=== PATIENT | female | born 1945 | race Caucasian/White ===

== ENCOUNTER 2020-02-26 08:01 | Day surgery (SDC) | payer MEDICARE, BC ==
--- NOTE | 2020-02-26 08:24 | PCM.PREANE ---
Preanesthetic Assessment - Anesthesia/Transfusion/Family Hx Anesthesia History: Prior Anesthesia Without Reaction - Review of Systems General: No Symptoms Pulmonary: No Symptoms Cardiovascular: No Symptoms Gastrointestinal: No Symptoms Neurological: No Symptoms Other: Reports: Diabetes - Physical Assessment NPO Status Date: 02/25/20 NPO Status Time: 18:00 Vital Signs: 121/61, 61, 16, 96% 98.5F Height: 1.75 m Weight: 72.575 kg ASA Class: 2 Mental Status: Alert & Oriented x3 Dentition: Reports: Partial (upper) Thyro-Mental Finger Breadths: 3 Mouth Opening Finger Breadths: 3 ROM/Head Extension: Full Lungs: Clear to Auscultation, Normal Respiratory Effort Cardiovascular: Regular Rate, Regular Rhythm - Allergies Allergies/Adverse Reactions: Allergies Allergy/AdvReac Type Severity Reaction Status Date / Time No Known Allergies Allergy Verified 02/25/20 13:44 - Acknowledgements Anesthesia Type Planned: MAC Pt an Appropriate Candidate for the Planned Anesthesia: Yes Alternatives and Risks of Anesthesia Discussed w Pt/Guardian: Yes Pt/Guardian Understands and Agrees with Anesthesia Plan: Yes PreAnesthesia Questionnaire Cardiovascular History: Reports: High Cholesterol Endocrine/Metabolic History: Reports: Diabetes, Type II, Hypothyroidism Oncologic (Cancer) History: Reports: Lung (Lt lower lobe removed) - Past Surgical History HEENT Surgical History: Reports: Tonsillectomy Respiratory Surgical History: Reports: Lung Resection - HOME MEDS Home Medications: Home Meds Alpha Lipoic Acid 50 mg PO DAILY 02/25/20 [History] Ascorbic Acid [Vitamin C] 1,000 mg PO DAILY 02/25/20 [History] Aspirin 81 mg PO DAILY 02/25/20 [History] Avocado Oil 1 dose PO DAILY 02/25/20 [History] Beta-Carotene [Beta Carotene] 10,000 unit PO DAILY 02/25/20 [History] Calcium Carbonate [Calcium] 600 mg PO DAILY 02/25/20 [History] Cholecalciferol (Vitamin D3) [Vitamin D3] 1,000 unit PO DAILY 02/25/20 [History] Cyanocobalamin (Vitamin B-12) [Vitamin B-12] 500 mcg PO DAILY 02/25/20 [History] Fish Oil/[place]-3 Fatty Acids [Fish Oil 1,000 MG] 1 gm PO DAILY 02/25/20 [Hi story] Glucosam/Chond/Collagen/Hyalur [Glucosamine Chondroitin] 1 cap PO DAILY 02/25/20 [History] Grape Seed Extract 50 mg PO DAILY 02/25/20 [History] Green Tea [place] Extract [Green Tea] 1 cap PO DAILY 02/25/20 [History] Lactobacillus Acidophilus [Probiotic] 1 cap PO DAILY 02/25/20 [History] Levothyroxine [Synthroid] 100 mcg PO DAILY 02/25/20 [History] Multivitamin 1 tab PO DAILY 02/25/20 [History] Pomegranate Fruit Extract [Pomegranate] 250 mg PO DAILY 02/25/20 [History] Resveratrol 100 mg PO DAILY 02/25/20 [History] Sour [place] Extract [Tart [place] Extract] 1,000 mg PO DAILY 02/25/20 [History] Turmeric/Turmeric Root Extract [Turmeric 450-50 mg Capsule] 1 cap PO DAILY 02/25/20 [History] Ubidecarenone [Coq-10] 100 mg PO DAILY 02/25/20 [History] Vitamin E 100 unit PO DAILY 02/25/20 [History] metFORMIN [Glucophage] 500 mg PO DAILY 02/25/20 [History] - CURRENT (IN HOUSE) MEDS Current Meds: Current Medications Brimonidine Tartrate (Alphagan 0.2% Ophth Soln) 0 ml EYERT ASDIRECTED LORRIE Stop: 02/26/20 18:00 Cefuroxime Sodium (Zinacef) 0 mg EYERT ASDIRECTED LORRIE Stop: 02/26/20 18:00 Lidocaine HCl (Xylocaine-Mpf 1%) 0 ml INJECT ASDIRECTED LORRIE Stop: 02/26/20 18:00 Phenylephrine HCl (Hubert-Synephrine 2.5% Ophth Soln) 0 ml EYERT ASDIRECTED LORRIE Stop: 02/26/20 18:00 Pilocarpine HCl (Pilocar 4% Ophth Soln) 0 ml EYERT ASDIRECTED LORRIE Stop: 02/26/20 18:00 Polymyxin/Trimethoprim Sulfate (Polytrim Ophth Soln) 0 ml EYERT ASDIRECTED LORRIE Stop: 02/26/20 18:00 Tetracaine HCl (Tetracaine 0.5% Steri-Unit Deisy) 0 ml EYEBOTH ASDIRECTED LORRIE Stop: 02/26/20 18:00 Tropicamide (Mydriacyl 1% Ophth Soln) 0 ml EYERT ASDIRECTED LORRIE Stop: 02/26/20 18:00
[2020-02-26] MEDS: Polymyxin B/Trimethoprim 10 ML Bottle EYERT SCH ×4 (08:34→11:56)
[2020-02-26] MEDS: Brimonidine 0.2% Ophth Soln 5 ML Bottle EYERT SCH ×4 (08:42→11:56)
[2020-02-26] MEDS: Phenylephrine 2.5% Ophth Soln 15 ML Bot EYERT SCH ×6 (08:47→10:28)
[2020-02-26] MEDS: Tropicamide 1% Ophth Soln 15 ML Bottle EYERT SCH ×4 (08:53→10:00)
[2020-02-26] MEDS: Lidocaine 1% PF 2 ML SDV INJECT SCH ×2 (10:16→10:39)
[2020-02-26] MEDS: Tetracaine HCl/PF 0.5% 4 ML Bottle EYEBOTH SCH ×3 (10:20→11:55)
[2020-02-26] MEDS: Cefuroxime 10 MG/ML SYRINGE EYERT SCH ×2 (10:49→11:55)
[2020-02-26] MEDS: Pilocarpine 4% Ophth Soln 15 ML Bot EYERT SCH ×2 (10:52→11:56)
--- NOTE | 2020-02-26 10:52 | PCM48HPAN ---
Post Anesthesia Note - EVALUATION WITHIN 48HRS OF ANESTHETIC Vital Signs in Normal Range: Yes Patient Participated in Evaluation: Yes Respiratory Function Stable: Yes Airway Patent: Yes Cardiovascular Function Stable: Yes Hydration Status Stable: Yes Pain Control Satisfactory: Yes Nausea and Vomiting Control Satisfactory: Yes Mental Status Recovered: Yes Vital Signs: Last Vital Signs Temp 36.9 C 02/26/20 08:00 Pulse 61 02/26/20 08:00 Resp 16 02/26/20 08:00 BP 121/61 02/26/20 08:00 Pulse Ox 96 02/26/20 08:00
== END 2020-02-26 11:00 | disposition home or self-care (01) ==
LOC: JD.SDS 08:01
PROVIDERS: ATTEND Ophthalmology
DX: E11.36 Type 2 diabetes mellitus with diabetic cataract (principal); E78.00 Pure hypercholesterolemia, unspecified; H25.813 Combined forms of age-related cataract, bilateral; H16.103 Unspecified superficial keratitis, bilateral; H16.223 Keratoconjunctivitis sicca, not specified as Sjogren's, bilateral; E07.9 Disorder of thyroid, unspecified; Z87.891 Personal history of nicotine dependence; Z79.82 Long term (current) use of aspirin; Z79.899 Other long term (current) drug therapy; Z79.84 Long term (current) use of oral hypoglycemic drugs
CPT/HCPCS: 66984; C1780; J0697; J2001

== ENCOUNTER 2020-03-25 06:44 | Day surgery (SDC) | payer MEDICARE, BC ==
[~2020-03-25 06:44] MED LIST: Cefuroxime 10 MG/ML SYRINGE EYELF SCH; Lidocaine 1% PF 2 ML SDV INJECT SCH
[2020-03-25] MEDS: Polymyxin B/Trimethoprim 10 ML Bottle EYELF SCH ×3 (07:10→08:39)
[2020-03-25] MEDS: Brimonidine 0.2% Ophth Soln 5 ML Bottle EYELF SCH ×3 (07:16→08:39)
--- NOTE | 2020-03-25 07:18 | PCM.PREANE ---
Preanesthetic Assessment - Anesthesia/Transfusion/Family Hx Anesthesia History: Prior Anesthesia Without Reaction Family History of Anesthesia Reaction: No Transfusion History: No Prior Transfusion(s) Intubation History: Unknown - Review of Systems General: No Symptoms Pulmonary: No Symptoms Cardiovascular: No Symptoms Gastrointestinal: No Symptoms Neurological: No Symptoms Other: Reports: None - Physical Assessment NPO Status Date: 03/24/20 NPO Status Time: 19:00 Vital Signs: Last Vital Signs Temp 37.0 C 03/25/20 06:53 Pulse 77 03/25/20 06:53 Resp 16 03/25/20 06:53 BP 139/63 03/25/20 06:53 Pulse Ox 94 L 03/25/20 06:53 ASA Class: 2 Mental Status: Alert & Oriented x3 Airway Class: Mallampati = 1 Dentition: Reports: Partial (upper/lower) Thyro-Mental Finger Breadths: 3 Mouth Opening Finger Breadths: 3 ROM/Head Extension: Full Lungs: Clear to Auscultation, Normal Respiratory Effort Cardiovascular: Regular Rate, Regular Rhythm - Allergies Allergies/Adverse Reactions: Allergies Allergy/AdvReac Type Severity Reaction Status Date / Time No Known Allergies Allergy Verified 02/25/20 13:44 - Acknowledgements Anesthesia Type Planned: MAC Pt an Appropriate Candidate for the Planned Anesthesia: Yes Alternatives and Risks of Anesthesia Discussed w Pt/Guardian: Yes Pt/Guardian Understands and Agrees with Anesthesia Plan: Yes PreAnesthesia Questionnaire HEENT History: Reports: Cataract Cardiovascular History: Reports: High Cholesterol Respiratory History: Reports: None Gastrointestinal History: Reports: None Genitourinary History: Reports: None Musculoskeletal History: Reports: None Neurological History: Reports: None Psychiatric History: Reports: None Endocrine/Metabolic History: Reports: Diabetes, Type II (Checks BS 1x/week), Hypothyroidism Oncologic (Cancer) History: Reports: Lung (Lt lower lobe removed) - Past Surgical History HEENT Surgical History: Reports: Cataract Surgery, Tonsillectomy Respiratory Surgical History: Reports: Lung Resection Female Surgical History: Reports: Tubal Ligation - SUBSTANCE USE Tobacco Use Status *Q: Former Tobacco User - HOME MEDS Home Medications: Home Meds Alpha Lipoic Acid 50 mg PO DAILY 02/25/20 [History] Ascorbic Acid [Vitamin C] 1,000 mg PO DAILY 02/25/20 [History] Aspirin 81 mg PO DAILY 02/25/20 [History] Avocado Oil 1 dose PO DAILY 02/25/20 [History] Beta-Carotene [Beta Carotene] 10,000 unit PO DAILY 02/25/20 [History] Calcium Carbonate [Calcium] 600 mg PO DAILY 02/25/20 [History] Cholecalciferol (Vitamin D3) [Vitamin D3] 1,000 unit PO DAILY 02/25/20 [History] Cyanocobalamin (Vitamin B-12) [Vitamin B-12] 500 mcg PO DAILY 02/25/20 [History] Fish Oil/[place]-3 Fatty Acids [Fish Oil 1,000 MG] 1 gm PO DAILY 02/25/20 [History] Glucosam/Chond/Collagen/Hyalur [Glucosamine Chondroitin] 1 cap PO DAILY 02/25/20 [History] Grape Seed Extract 50 mg PO DAILY 02/25/20 [History] Green Tea [place] Extract [Green Tea] 1 cap PO DAILY 02/25/20 [History] Lactobacillus Acidophilus [Probiotic] 1 cap PO DAILY 02/25/20 [History] Levothyroxine [Synthroid] 100 mcg PO DAILY 02/25/20 [History] Multivitamin 1 tab PO DAILY 02/25/20 [History] Pomegranate Fruit Extract [Pomegranate] 250 mg PO DAILY 02/25/20 [History] Resveratrol 100 mg PO DAILY 02/25/20 [History] Sour [place] Extract [Tart [place] Extract] 1,000 mg PO DAILY 02/25/20 [History] Turmeric/Turmeric Root Extract [Turmeric 450-50 mg Capsule] 1 cap PO DAILY 02/25/20 [History] Ubidecarenone [Coq-10] 100 mg PO DAILY 02/25/20 [History] Vitamin E 100 unit PO DAILY 02/25/20 [History] metFORMIN [Glucophage] 500 mg PO DAILY 02/25/20 [History] - CURRENT (IN HOUSE) MEDS Current Meds: Current Medications Brimonidine Tartrate (Alphagan 0.2% Oph Soln) 0 ml EYELF ASDIRECTED LORRIE Stop: 03/25/20 18:00 Cefuroxime Sodium (Zinacef) 0 mg EYELF ASDIRECTED LORRIE Stop: 03/25/20 18:00 Lidocaine HCl (Xylocaine-Mpf 1%) 0 ml INJECT ASDIRECTED LORRIE Stop: 03/25/20 18:00 Phenylephrine HCl (Hubert-Synephrine 2.5% Ophth Soln) 0 ml EYELF ASDIRECTED LORRIE Stop: 03/25/20 18:00 Pilocarpine HCl (Pilocar 4% Ophth Soln) 0 ml EYELF ASDIRECTED LORRIE Stop: 03/25/20 18:00 Polymyxin/Trimethoprim Sulfate (Polytrim Ophth Soln) 0 ml EYELF ASDIRECTED LORRIE Stop: 03/25/20 18:00 Tetracaine HCl (Tetracaine 0.5% Steri-Unit Deisy) 0 ml EYEBOTH ASDIRECTED LORRIE Stop: 03/25/20 18:00 Tropicamide (Mydriacyl 1% Ophth Soln) 0 ml EYELF ASDIRECTED LORRIE Stop: 03/25/20 18:00
[2020-03-25] MEDS: Phenylephrine 2.5% Ophth Soln 2 ML Bot EYELF SCH ×4 (07:20→07:52)
[2020-03-25] MEDS: Tropicamide 1% Ophth Soln 15 ML Bottle EYELF SCH ×4 (07:25→07:53)
[2020-03-25] MEDS: Tetracaine HCl/PF 0.5% 4 ML Bottle EYEBOTH SCH ×2 (08:02→08:25)
[2020-03-25] MEDS: Pilocarpine 4% Ophth Soln 15 ML Bot EYELF SCH ×2 (08:13→08:39)
--- NOTE | 2020-03-25 08:26 | PCM48HPAN ---
Post Anesthesia Note - EVALUATION WITHIN 48HRS OF ANESTHETIC Vital Signs: Last Vital Signs Temp 37.0 C 03/25/20 06:53 Pulse 77 03/25/20 06:53 Resp 16 03/25/20 06:53 BP 139/63 03/25/20 06:53 Pulse Ox 94 L 03/25/20 06:53
--- NOTE | 2020-03-25 08:42 | PCM48HPAN ---
Post Anesthesia Note - EVALUATION WITHIN 48HRS OF ANESTHETIC Vital Signs in Normal Range: Yes Patient Participated in Evaluation: Yes Respiratory Function Stable: Yes Airway Patent: Yes Cardiovascular Function Stable: Yes Hydration Status Stable: Yes Pain Control Satisfactory: Yes Nausea and Vomiting Control Satisfactory: Yes Mental Status Recovered: Yes Vital Signs: Last Vital Signs Temp 37.0 C 03/25/20 06:53 Pulse 77 03/25/20 06:53 Resp 16 03/25/20 06:53 BP 139/63 03/25/20 06:53 Pulse Ox 94 L 03/25/20 06:53
== END 2020-03-25 08:50 | disposition home or self-care (01) ==
LOC: JD.SDS 06:44
PROVIDERS: ATTEND Ophthalmology
DX: E11.36 Type 2 diabetes mellitus with diabetic cataract (principal); H25.812 Combined forms of age-related cataract, left eye; H02.834 Dermatochalasis of left upper eyelid; H02.831 Dermatochalasis of right upper eyelid; E78.00 Pure hypercholesterolemia, unspecified; E03.9 Hypothyroidism, unspecified; Z98.890 Other specified postprocedural states; Z87.891 Personal history of nicotine dependence; Z96.1 Presence of intraocular lens; Z79.82 Long term (current) use of aspirin; Z79.84 Long term (current) use of oral hypoglycemic drugs; Z79.899 Other long term (current) drug therapy
CPT/HCPCS: 66984; C1780; J0697